=== PATIENT | female | born 1950 | race Caucasian/White ===

== ENCOUNTER 2016-12-15 10:07 | Emergency (ER) | payer MEDICARE, OTHER ==
[2016-12-15] MEDS ORDERED: MORPHINE SULFATE 4 MG INJ IV ONE (10:28)
[2016-12-15] MEDS ORDERED: Phenergan 25 MG INJ IV ONE (10:29)
[2016-12-15] MEDS ORDERED: Sodium Chloride 0.9% 1000 ML 1,000 ML IV SCH (10:30)
[2016-12-15] MEDS ORDERED: MORPHINE SULFATE 4 MG INJ ONE (10:34)
[2016-12-15] MEDS ORDERED: Phenergan 25 MG INJ ONE (10:34)
[2016-12-15] MEDS ORDERED: Sodium Chloride 0.9% 1000 ML 1,000 ML ONE (10:35)
--- NOTE | 2016-12-15 10:35 | ERPHSYRPT ---
- History of Present Illness Time Seen by Provider: 12/15/16 10:23 Historian: patient Exam Limitations: no limitations Patient Subjective Stated Complaint: pt co pain to abd since last night, pain is diffuse,nausea, no vomiitng, black tarry stool last night Triage Nursing Assessment: pt alert, resp easy.skin w/d pale.abd distended,and tender to touch Physician History: This is a 66-year-old white female with history of coronary artery disease, COPD , sarcoidosis, colitis, patient arrives with complaint of pain in the periumbilical region symptoms since last night she has abdominal distention she states that she has been having hard stools and has had black tarry stool since last night. She states she has had dry heaves. She has no fevers no chest pain no shortness of breath. Past medical history includes coronary artery disease, COPD, sarcoidosis, colitis. Past surgical history includes cardiac stent, right femur surgery, back fusion. Timing/Duration: yesterday (last night) Quality: aching, cramping Abdominal Pain Onset Location: periumbilical Pain Radiation: no radiation Severity of Pain-Max: moderate Severity of Pain-Current: moderate Modifying Factors: Improves With: nothing Associated Symptoms: nausea, No back, No chest pain, No diaphoresis, No diarrhea , No fever/chills, No fatigue, No headache, No heartburn, No loss of appetite, No neck pain, No rash, No shortness of breath, No syncope (Will), No vomiting Previous symptoms: no prior history Allergies/Adverse Reactions: amoxicillin trihydrate [From Augmentin] Adverse Reaction (Mild, Verified 10:21) nauseated potassium clavula *RETIRED-02/16/13 [From Augmentin] Adverse Reaction (Mild, Verified 12/15/16 10:21) nauseated hydrocodone Adverse Reaction (Verified 12/15/16 10:21) Home Medications: Albuterol Sulfate [Proair Hfa] 8.5 gm IH Q4-6HPRN PRN 05/26/16 [History] Amlodipine/Atorvastatin [Caduet 10 mg-10 mg Tablet] 1 each PO DAILY 05/26/16 [ History] Fenofibrate 54 mg PO DAILY 05/26/16 [History] Fluticasone/Salmeterol [Advair 250-50 Diskus] 1 puff IH BID 05/26/16 [History] Furosemide 40 mg PO DAILY 05/26/16 [History] Isosorbide Mononitrate 30 mg [Imdur 30 MG] 30 mg PO DAILY 05/26/16 [History ] Lisinopril/Hydrochlorothiazide [Lisinopril-Hctz 20-12.5 mg Tab] 1 each PO DAILY 05/26/16 [History] Metoprolol Succinate 50 mg [Toprol Xl 50 MG] 75 mg PO DAILY 05/26/16 [ History] [place]-3/Dha/Epa/Fish Oil [Fish Oil Dr 500 mg Softgel] 1,000 mg PO BID 05/26/16 [ History] Oxycodone HCl/Acetaminophen [Percocet 10-325 mg Tablet] 1 - 2 each PO Q6HPRN PRN 05/26/16 [History] Pravastatin Sodium 20 mg PO DAILY 05/26/16 [History] Nitroglycerin 0.4 mg Tablet [Nitrostat 0.4 MG Tablet] 0.4 mg SL Q5MIN PRN MR X 3 PRN 06/30/16 [History] Potassium Chloride 10 Meq Tab* [Klor Con 10 MEQ] 10 meq PO BID 06/30/16 [ History] Aspirin 1 tab PO DAILY 10/02/16 [History] Carbidopa/Levodopa [Sinemet 25-100 mg Tablet] 1 ea TID 12/15/16 [History] Nabumetone [Relafen] 750 mg BID 12/15/16 [History] Hx Tetanus, Diphtheria Vaccination/Date Given: Yes (UP TO DATE) Hx Influenza Vaccination/Date Given: Yes Hx Pneumococcal Vaccination/Date Given: Yes Immunizations Up to Date: Yes - Review of Systems Constitutional: No Fever, No Chills Eyes: No Symptoms Ears, Nose, & Throat: No Symptoms, No Ear Pain, No Ear Discharge, No Hearing Changes, No Tinnitus, No Nose Pain, No Nose Congestion, No Nose Discharge, No Sinus Drainage, No Epistaxis, No Mouth Pain, No Mouth Swelling, No Loose Teeth, No Throat Swelling Respiratory: No Cough, No Cyanosis, No Dyspnea, No Stridor, No Wheezing Cardiac: No Chest Pain, No Edema, No Syncope Abdominal/Gastrointestinal: Abdominal Pain, Nausea, Vomiting (dry heaves), Melena, No Diarrhea, No Constipation, No Hematemesis, No Hematochezia Genitourinary Symptoms: No Dysuria Musculoskeletal: No Back Pain, No Neck Pain Skin: No Rash Neurological: No Dizziness, No Focal Weakness, No Sensory Changes Psychological: No Symptoms Endocrine: No Symptoms All Other Systems: Reviewed and Negative - Past Medical History Pertinent Past Medical History: Yes Neurological History: No Pertinent History, TIA ENT History: No Pertinent History Cardiac History: Coronary Artery Disease Respiratory History: COPD, Pneumonia, Other Endocrine Medical History: Diabetes Type II Musculoskeletal History: No Pertinent History History: Other Psycho-Social History: No Pertinent History Female Reproductive Disorders: No Pertinent History Other Medical History: Sarcodosis. UTI,tremors,bleeding ulcers - Past Surgical History Past Surgical History: Yes Neuro Surgical History: No Pertinent History Cardiac: Cardiac Stent Respiratory: No Pertinent History Genitourinary: No Pertinent History Musculoskeletal: Orthopedic Surgery Female Surgical History: No Pertinent History Other Surgical History: Right femur, back fusion - Social History Smoking Status: Never smoker Exposure to second hand smoke: No Drug Use: none Patient Lives Alone: Yes - Female History Hx Last Menstrual Period: post Hx Now: No - Nursing Vital Signs Nursing Vital Signs: Initial Vital Signs Temperature 98.4 F Temperature Source Oral Pulse Rate 78 Respiratory Rate 16 Blood Pressure [] 104/54 Pain Intensity 5 - Physical Exam General Appearance: moderate distress, alert Eye Exam: PERRL/EOMI, eyes nml inspection Ears, Nose, Throat Exam: normal ENT inspection, pharynx normal, moist mucous membranes Neck Exam: normal inspection, non-tender, supple, full range of motion Respiratory Exam: normal breath sounds, lungs clear, No respiratory distress Cardiovascular Exam: regular rate/rhythm, normal heart sounds, normal peripheral pulses, murmur (1/6 david) Gastrointestinal/Abdomen Exam: tenderness (periumbilical tenderness), distention , other (Abdomen moderately distended, firm positive bowel sounds.), No mass, No guarding, No ecchymosis, No pulsatile mass, No rebound, No hernia, No hepatomegaly, No organomegaly, No splenomegaly, No bruit Back Exam: normal inspection, normal range of motion, No CVA tenderness, No vertebral tenderness Extremity Exam: normal inspection, normal range of motion, pelvis stable Neurologic Exam: alert, oriented x 3, cooperative, normal mood/affect, nml cerebellar function, sensation nml, No motor deficits Skin Exam: normal color, warm, dry SpO2 Interpretation: normal (100%) SpO2: 100 Oxygen Delivery: Room Air - CT Exams Abdomen/Pelvis CT Interpretation: Discussed w/radiologist (CT abdomen: Cirrhotic liver, large abdominal ascites, stable gallstone and chronic bony findings, new tiny left lung base effusion.) Ordered Tests: Active Orders 24 hr Category Date Time Status IV Insertion STAT Care 12/15/16 10:28 Active ABDOMEN AND PELVIS W/0 CONTRAS [CT] Stat Exams 12/15/16 11:26 Completed AMYLASE Stat Lab 12/15/16 10:20 Completed CBC W DIFF Stat Lab 12/15/16 10:20 Completed CMP Stat Lab 12/15/16 10:20 Completed LIPASE Stat Lab 12/15/16 10:20 Completed Occult Blood,Stool Other Stat Lab 12/15/16 10:30 Ordered UA Stat Lab 12/15/16 10:28 Ordered Medication Summary Generic Name Dose Route Start Last Admin Trade Name Freq PRN Reason Stop Dose Admin Sodium Chloride 1,000 mls @ 100 mls/hr 12/15/16 10:30 12/15/16 10:37 Sodium Chloride 0.9% 1000 Ml IV 01/14/17 10:29 100 mls/hr .Q10H EMIGDIO Administration Discontinued Medications Generic Name Dose Route Start Last Admin Trade Name Freq PRN Reason Stop Dose Admin Sodium Chloride Confirm 12/15/16 10:35 Sodium Chloride 0.9% 1000 Ml Administered 12/15/16 10:36 Dose 1,000 mls @ ud .ROUTE .STK-MED ONE Morphine Sulfate 4 mg 12/15/16 10:28 12/15/16 10:37 Morphine Sulfate 4 Mg Inj IV 12/15/16 10:29 4 mg STAT ONE Administration Morphine Sulfate Confirm 12/15/16 10:34 Morphine Sulfate 4 Mg Inj Administered 12/15/16 10:35 Dose 4 mg .ROUTE .STK-MED ONE Promethazine HCl 12.5 mg 12/15/16 10:29 12/15/16 10:40 Phenergan 25 Mg Inj IV 12/15/16 10:30 12.5 mg STAT ONE Administration Promethazine HCl Confirm 12/15/16 10:34 Phenergan 25 Mg Inj Administered 12/15/16 10:35 Dose 25 mg .ROUTE .STK-MED ONE Lab/Rad Data: Laboratory Result Diagrams 12/15/16 10:20 12/15/16 10:20 Laboratory Results 12/15/16 12/15/16 Range/Units 10:20 10:20 WBC 7.9 (4.0-10.5) K/mm3 RBC 2.96 L (4.1-5.4) M/mm3 Hgb 9.2 L (12.0-16.0) gm/dl Hct 27.6 L (35-47) % MCV 93.2 (78-100) fl MCH 31.0 (26-32) pg MCHC 33.3 (32-36) g/dl RDW 14.5 H (11.5-14.0) % Plt Count 238 (150-450) K/mm3 MPV 10.7 H (6-9.5) fl Gran % 58.4 (36.0-66.0) % Lymphocytes % 28.4 (24.0-44.0) % Monocytes % 8.9 (0.0-12.0) % Eosinophils % 3.8 (0.00-5.0) % Basophils % 0.5 (0.0-0.4) % Basophils # 0.04 (0-0.4) Sodium 139 (136-145) mEq/L Potassium 3.9 (3.5-5.1) mEq/L Chloride 102 (98-107) mEq/L Carbon Dioxide 24.6 (21-32) mEq/L Anion Gap 16.2 H (5-15) MEQ/L BUN 33 H (9-20) mg/dL Creatinine 2.27 H (0.55-1.30) mg/dl Estimated GFR 23 ML/MIN Glucose 161 H (70-110) MG/DL Calcium 9.1 (8.5-10.1) mg/dL Total Bilirubin 1.6 H (0.2-1.0) mg/dL AST 40 H (15-37) U/L ALT 7 L (12-78) U/L Alkaline Phosphatase 75 (46-116) U/L Serum Total Protein 8.7 H (6.4-8.2) gm/dL Albumin 2.3 L (3.4-5.0) g/dL Amylase 18 L (25-115) U/L Lipase 103 (73-393) U/L - Progress Progress: improved Progress Note: 12/15/16 12:32 This is a 66-year-old white female with history of coronary artery disease COPD sarcoidosis colitis She arrives with complaint of abdominal distention and pain in the area superior to the umbilicus symptoms since last night. Patient with moderate amount of pain abdomen is mildly firm positive bowel sounds and distended. CT of the abdomen which shows a large amount of ascites. Patient's CBC shows a white count of 7.9 hemoglobin 9.2 hematocrit 27.6 chemistry shows a sodium 139 potassium 3.9 chloride 102 bicarbonate 24 BUN 33 creatinine 2.7 glucose 161 Patient has not produced a urine at this time I have discussed case with Dr. Ventura who is covering for the patient's physician Dr. West. Dr. Ventura requests that the patient be taking care of him Laura Cho due to specialist availability. I've discussed the case with Dr. Muñoz at [facility] hospitalist he has accepted the patient for transfer. Diagnosis abdominal pain, ascites. Patient has been given morphine she does have mild release of relief of her pain but still has pain. She has been given careful IV normal saline 100 mL per hour. Will transfer to [facility] - Departure Time of Disposition: 12:34 Departure Disposition: Transfer ([facility], Dr. Muñoz) Clinical Impression: Abdominal pain Qualifiers: Abdominal location: upper abdomen, unspecified Qualified Code(s): R10.10 - Upper abdominal pain, unspecified Ascites Qualifiers: Ascites type: other type Qualified Code(s): R18.8 - Other ascites Condition: Fair Critical Care Time: No
[2016-12-15 10:37] LABS: BASOPHIL % 0.5 % (0.0-0.4); Eosinophil % 3.8 % (0.00-5.0); Granulocytes % 58.4 % (36.0-66.0); Lymphocytes % 28.4 % (24.0-44.0); Mean Cell Volume 93.2 fl (78-100); Mean Platelet Volume 10.7 fl (6-9.5); Monocytes % 8.9 % (0.0-12.0); Platelet Count 238 K/mm3 (150-450); Red Blood Count 2.96 M/mm3 (4.1-5.4); Red Cell Distribution Width 14.5 % (11.5-14.0); White Blood Count 7.9 K/mm3 (4.0-10.5)
[2016-12-15 10:53] LABS: ALBUMIN 2.3 g/dL (3.4-5.0); ANION GAP 16.2 MEQ/L (5-15); BILIRUBIN,TOTAL 1.6 mg/dL (0.2-1.0); Carbon Dioxide 24.6 mEq/L (21-32); Potassium 3.9 mEq/L (3.5-5.1); Total Protein 8.7 gm/dL (6.4-8.2)
[2016-12-15 11:55] VITALS: BP 104/54; PULSE 78
[2016-12-15 12:02] VITALS: O2SAT 100
--- NOTE | 2016-12-15 12:07 | XRAY ---
Indication: Abdominal pain. Multiple contiguous axial images obtained through the abdomen and pelvis without contrast as ordered. Comparison: October 03, 2016. Lung bases demonstrates minimal bibasilar dependent atelectasis and new tiny left effusion. Heart is not enlarged. Interval increasing large abdominal and pelvic ascites. No walled off fluid collection or free air. Again cirrhotic appearing liver and solitary gallstone. Noncontrasted stomach and bowel loops appear nonobstructed. Previous reported hysterectomy and appendectomy. Remaining liver, gallbladder, pancreas, spleen, adrenal glands, kidneys, ureters, and bladder appear unremarkable for noncontrast exam. Mild aortoiliac calcifications without AAA. Osseous structures intact again with multilevel spinal degenerative changes, remote T12 superior endplate fracture, L4-L5 fusion with laminectomy, and previous right femur ORIF surgery. Impression: 1. Again cirrhotic liver with now large abdominal/pelvic ascites. 2. Stable gallstone and chronic bony findings detailed above. 3. New tiny left lung base effusion. CT DI 27.40
== END 2016-12-15 13:33 | disposition short-term general hospital (02) ==
LOC: ED 10:07
DX: R10.10 Upper abdominal pain, unspecified (principal); R18.8 Other ascites; E11.9 Type 2 diabetes mellitus without complications; R11.2 Nausea with vomiting, unspecified; K92.1 Melena; Z86.73 Personal history of transient ischemic attack (TIA), and cerebral infarction without residual deficits
CPT/HCPCS: 36000; 36415; 74176; 80053; 82150; 83690; 85025; 96360; 96361; 96374; 96375; 99284; 99285; J2270; J2550

== ENCOUNTER 2017-04-03 22:56 | Emergency (ER) | payer MEDICARE, OTHER ==
--- NOTE | 2017-04-03 23:13 | ERPHSYRPT ---
- History of Present Illness Time Seen by Provider: 04/03/17 22:56 Source: patient Exam Limitations: no limitations Physician History: FOR THE PAST 5 DAYS PT HAS HAD CRAMPING LOWER ABDOMINAL PAIN. PT VOMITED X1 TODAY. LAST BM WAS 2 DAYS AGO AND NOT DIARRHEAL. PT ALSO C/O SHORTNESS OF AIR. PT DENIES FEVER AND CHEST PAIN; ADMITS TO LEGS SWELLING FOR "A WHILE". Allergies/Adverse Reactions: amoxicillin trihydrate [From Augmentin] Adverse Reaction (Mild, Verified 10:21) nauseated potassium clavula *RETIRED-02/16/13 [From Augmentin] Adverse Reaction (Mild, Verified 12/15/16 10:21) nauseated hydrocodone Adverse Reaction (Verified 12/15/16 10:21) Home Medications: Albuterol Sulfate [Proair Hfa] 8.5 gm IH Q4-6HPRN PRN 05/26/16 [History] Amlodipine/Atorvastatin [Caduet 10 mg-10 mg Tablet] 1 each PO DAILY 05/26/16 [ History] Fenofibrate 54 mg PO DAILY 05/26/16 [History] Fluticasone/Salmeterol [Advair 250-50 Diskus] 1 puff IH BID 05/26/16 [History] Furosemide 40 mg PO DAILY 05/26/16 [History] Isosorbide Mononitrate 30 mg [Imdur 30 MG] 30 mg PO DAILY 05/26/16 [History ] Lisinopril/Hydrochlorothiazide [Lisinopril-Hctz 20-12.5 mg Tab] 1 each PO DAILY 05/26/16 [History] Metoprolol Succinate 50 mg [Toprol Xl 50 MG] 75 mg PO DAILY 05/26/16 [ History] [place]-3/Dha/Epa/Fish Oil [Fish Oil Dr 500 mg Softgel] 1,000 mg PO BID 05/26/16 [ History] Oxycodone HCl/Acetaminophen [Percocet 10-325 mg Tablet] 1 - 2 each PO Q6HPRN PRN 05/26/16 [History] Pravastatin Sodium 20 mg PO DAILY 05/26/16 [History] Nitroglycerin 0.4 mg Tablet [Nitrostat 0.4 MG Tablet] 0.4 mg SL Q5MIN PRN MR X 3 PRN 06/30/16 [History] Potassium Chloride 10 Meq Tab* [Klor Con 10 MEQ] 10 meq PO BID 06/30/16 [ History] Aspirin 1 tab PO DAILY 10/02/16 [History] Carbidopa/Levodopa [Sinemet 25-100 mg Tablet] 1 ea TID 12/15/16 [History] Nabumetone [Relafen] 750 mg BID 12/15/16 [History] Hx Tetanus, Diphtheria Vaccination/Date Given: Yes (UP TO DATE) Hx Influenza Vaccination/Date Given: Yes Hx Pneumococcal Vaccination/Date Given: Yes - Review of Systems Constitutional: No Fever Respiratory: Dyspnea Abdominal/Gastrointestinal: Abdominal Pain, Vomiting Musculoskeletal: Other (SWELLING OF LEGS(ONGOING)) All Other Systems: Reviewed and Negative - Past Medical History Pertinent Past Medical History: Yes Neurological History: No Pertinent History, TIA ENT History: No Pertinent History Cardiac History: Coronary Artery Disease Respiratory History: COPD, Pneumonia, Other Endocrine Medical History: Diabetes Type II Musculoskeletal History: No Pertinent History History: Other Psycho-Social History: No Pertinent History Female Reproductive Disorders: No Pertinent History Other Medical History: Sarcodosis. UTI,tremors,bleeding ulcers - Past Surgical History Past Surgical History: Yes Neuro Surgical History: No Pertinent History Cardiac: Cardiac Stent Respiratory: No Pertinent History Genitourinary: No Pertinent History Musculoskeletal: Orthopedic Surgery Female Surgical History: No Pertinent History Other Surgical History: Right femur, back fusion - Social History Smoking Status: Never smoker Exposure to second hand smoke: No Drug Use: none Patient Lives Alone: Yes - Female History Hx Now: No - Nursing Vital Signs Nursing Vital Signs: Initial Vital Signs Temperature 98.2 F Temperature Source Oral Pulse Rate 67 Respiratory Rate 18 Blood Pressure [Right Arm] 101/41 Pain Intensity 8 - Physical Exam General Appearance: alert Eye Exam: PERRL/EOMI Ears, Nose, Throat Exam: dry mucous membranes Neck Exam: normal inspection Respiratory Exam: lungs clear Cardiovascular Exam: murmur (3/6 SYSTOLIC MURMUR) Gastrointestinal/Abdomen Exam: soft, normal bowel sounds Rectal Exam: normal rectal tone Back Exam: normal inspection Extremity Exam: swelling (+3 RIGHT AND +2 LEFT LEG PITTING EDEMA) Neurologic Exam: alert, cooperative Skin Exam: pale - Course Nursing assessment & vital signs reviewed: Yes EKG Interpreted by Me: RATE ([id number]), Sinus Rhythm, NORMAL AXIS, NORMAL INTERVALS - Radiology Exams Chest X-ray Interpretation: Interpreted by me (RIGHT PLEURAL EFFUSION) Ordered Tests: Active Orders 24 hr Category Date Time Status Catheter-[facility] STAT Care 04/03/17 23:33 Active EKG-ER Only STAT Care 04/03/17 23:11 Active IV Insertion STAT Care 04/03/17 23:11 Active ABDOMEN AND PELVIS W/0 CONTRAS [CT] Stat Exams 04/03/17 23:12 Taken CHEST 1 VIEW (PORTABLE) Stat Exams 04/03/17 23:12 Taken AMYLASE Stat Lab 04/03/17 23:15 Completed BLOOD CULTURE Stat Lab 04/03/17 23:25 Received CBC W DIFF Stat Lab 04/03/17 23:15 Completed CMP Stat Lab 04/03/17 23:15 Completed CULTURE,URINE Stat Lab 04/04/17 00:30 Received LIPASE Stat Lab 04/03/17 23:15 Completed Lactic Acid Stat Lab 04/04/17 00:14 Results Manual Differential NC Stat Lab 04/03/17 23:15 Completed Occult Blood,Stool Other Stat Lab 04/04/17 00:20 Completed PROTIME WITH INR Stat Lab 04/04/17 00:00 Completed PTT Stat Lab 04/04/17 00:00 Completed TROPONIN Stat Lab 04/03/17 23:15 Completed UA W/ MICROSCOPIC Stat Lab 04/04/17 00:30 Completed Medication Summary Generic Name Dose Route Start Last Admin Trade Name Freq PRN Reason Stop Dose Admin Sodium Chloride 1,000 mls @ 200 mls/hr 04/03/17 23:15 04/03/17 23:25 Sodium Chloride 0.9% 1000 Ml IV 05/03/17 23:14 200 mls/hr .Q5H EMIGDIO Administration Discontinued Medications Generic Name Dose Route Start Last Admin Trade Name Freq PRN Reason Stop Dose Admin Sodium Chloride 1,000 mls @ 999 mls/hr 04/04/17 00:14 04/04/17 00:26 Sodium Chloride 0.9% 1000 Ml IV 04/04/17 01:14 999 mls/hr .Q1H1M STA Administration Ceftriaxone Sodium/Dextrose 1 g in 50 mls @ 100 mls/hr 04/04/17 00:15 00:28 Rocephin 1 Gm-D5w 50 Ml Bag IV 04/04/17 00:44 100 mls/hr STAT STA Administration Ceftriaxone Sodium/Dextrose Confirm 04/04/17 00:27 Rocephin 1 Gm-D5w 50 Ml Bag Administered 04/04/17 00:28 Dose 1 g in 50 mls @ ud IV .STK-MED ONE Lab/Rad Data: Laboratory Result Diagrams 04/03/17 23:15 04/03/17 23:15 Laboratory Results 04/04/17 04/04/17 04/04/17 Range/Units 00:30 00:20 00:14 WBC (4.0-10.5) K/mm3 RBC (4.1-5.4) M/mm3 Hgb (12.0-16.0) gm/dl Hct (35-47) % MCV (78-100) fl MCH (26-32) pg MCHC (32-36) g/dl RDW (11.5-14.0) % Plt Count (150-450) K/mm3 MPV (6-9.5) fl INR (0.8-3.0) APTT (25.3-37.0) SECONDS Sodium (136-145) mEq/L Potassium (3.5-5.1) mEq/L Chloride (98-107) mEq/L Carbon Dioxide (21-32) mEq/L Anion Gap (5-15) MEQ/L BUN (9-20) mg/dL Creatinine (0.55-1.30) mg/dl Estimated GFR ML/MIN Glucose (70-110) MG/DL Lactic Acid 3.6 H (0.4-2.0) Calcium (8.5-10.1) mg/dL Total Bilirubin (0.2-1.0) mg/dL AST (15-37) U/L ALT (12-78) U/L Alkaline Phosphatase (46-116) U/L Troponin I (0.000-0.056) ng/ml Serum Total Protein (6.4-8.2) gm/dL Albumin (3.4-5.0) g/dL Amylase (25-115) U/L Lipase (73-393) U/L Ur Collection Type CATH Urine Color BROWN (YELLOW) Urine Appearance CLOUDY (CLEAR) Urine pH 6.0 (5-6) Ur Specific [place] 1.020 (1.005-1.025) Urine Protein >=300 (Negative) Urine Glucose (UA) NEGATIVE (NEGATIVE) mg/dL Urine Ketones SMALL-15 (NEGATIVE) Urine Nitrite NEGATIVE (NEGATIVE) Urine Bilirubin SMALL (NEGATIVE) Urine Urobilinogen 1 (0-1) mg/dL Urine WBC (Auto) SMALL (NEGATIVE) Urine RBC (Auto) LARGE (0-5) Scottie/ul Urine Microscopic RBC 50-100 (0-2) /HPF Urine Microscopic WBC 25-50 (0-5) /HPF Ur Epithelial Cells RARE (FEW) /HPF Urine Bacteria MODERATE (NEGATIVE) /HPF Urine Mucus MODERATE (NEGATIVE) /HPF Stool Occult Blood NEGATIVE (Negative) Specimen Received 04/04/17:0030 04/04/17 04/03/17 04/03/17 Range/Units 00:00 23:15 23:15 WBC 26.8 H* (4.0-10.5) K/mm3 RBC 2.07 L (4.1-5.4) M/mm3 Hgb 5.8 L* (12.0-16.0) gm/dl Hct 17.9 L (35-47) % MCV 86.5 (78-100) fl MCH 28.0 (26-32) pg MCHC 32.4 (32-36) g/dl RDW 15.4 H (11.5-14.0) % Plt Count 258 (150-450) K/mm3 MPV 11.1 H (6-9.5) fl INR 2.14 (0.8-3.0) APTT 37.0 (25.3-37.0) SECONDS Sodium 128 L (136-145) mEq/L Potassium 4.3 (3.5-5.1) mEq/L Chloride 94 L (98-107) mEq/L Carbon Dioxide 20.0 L (21-32) mEq/L Anion Gap 18.5 H (5-15) MEQ/L BUN 52 H (9-20) mg/dL Creatinine 3.12 H (0.55-1.30) mg/dl Estimated GFR 16 ML/MIN Glucose 111 H (70-110) MG/DL Lactic Acid (0.4-2.0) Calcium 9.3 (8.5-10.1) mg/dL Total Bilirubin 1.60 H (0.2-1.0) mg/dL AST 46 H (15-37) U/L ALT < 6 L (12-78) U/L Alkaline Phosphatase 96 (46-116) U/L Troponin I 0.516 H* (0.000-0.056) ng/ml Serum Total Protein 9.5 H (6.4-8.2) gm/dL Albumin 2.3 L (3.4-5.0) g/dL Amylase 18 L (25-115) U/L Lipase 77 (73-393) U/L Ur Collection Type Urine Color (YELLOW) Urine Appearance (CLEAR) Urine pH (5-6) Ur Specific [place] (1.005-1.025) Urine Protein (Negative) Urine Glucose (UA) (NEGATIVE) mg/dL Urine Ketones (NEGATIVE) Urine Nitrite (NEGATIVE) Urine Bilirubin (NEGATIVE) Urine Urobilinogen (0-1) mg/dL Urine WBC (Auto) (NEGATIVE) Urine RBC (Auto) (0-5) Scottie/ul Urine Microscopic RBC (0-2) /HPF Urine Microscopic WBC (0-5) /HPF Ur Epithelial Cells (FEW) /HPF Urine Bacteria (NEGATIVE) /HPF Urine Mucus (NEGATIVE) /HPF Stool Occult Blood (Negative) Specimen Received - Progress Discussed with Dr.: Other (SPOKE WITH JASON JULES N.P.(FOR DR DUMAS)([id number]) WHO ACCEPTED PT FOR TRANSFER TO [facility] A DIRECT ADMISSION.) - Departure Time of Disposition: 01:45 Departure Disposition: Transfer ([facility]) Clinical Impression: SEVERE ANEMIA, LEUKOCYTOSIS R/O SEPSIS, ELEVATED TROPONIN, RENAL FAILURE, DECUBITUS ULCERS, COPD, DM, UTI, CAD Condition: Stable Critical Care Time: Yes Critical Care Time(excluding separately billable procedures): 30-74 minutes Referrals: CHANO VALENCIA MD [Primary Care Provider] -
[2017-04-03] MEDS ORDERED: Sodium Chloride 0.9% 1000 ML 1,000 ML IV SCH (23:15)
[2017-04-03] MEDS ORDERED: Sodium Chloride 0.9% 1000 ML 1,000 ML ONE (23:18)
[2017-04-04 00:04] LABS: Mean Cell Volume 86.5 fl (78-100); Mean Platelet Volume 11.1 fl (6-9.5); Platelet Count 258 K/mm3 (150-450); Red Blood Count 2.07 M/mm3 (4.1-5.4); Red Cell Distribution Width 15.4 % (11.5-14.0)
[2017-04-04 00:10] LABS: White Blood Count 26.8 K/mm3 (4.0-10.5)
[2017-04-04] MEDS ORDERED: Sodium Chloride 0.9% 1000 ML 1,000 ML IV STA (00:14)
[2017-04-04] MEDS ORDERED: ROCEPHIN 1 Gm-D5w 50 ml Bag** 1 G/50 ML IVPB IV STA (00:15)
[2017-04-04 00:23] LABS: ALBUMIN 2.3 g/dL (3.4-5.0); ALKALINE PHOSPHATASE 96 U/L (46-116); ANION GAP 18.5 MEQ/L (5-15); BLOOD UREA NITROGEN 52 mg/dL (9-20); CHLORIDE 94 mEq/L (98-107); Glucose 111 MG/DL (70-110); LIPASE 77 U/L (73-393); Potassium 4.3 mEq/L (3.5-5.1); SGOT/AST 46 U/L (15-37); SODIUM 128 mEq/L (136-145); Total Protein 9.5 gm/dL (6.4-8.2)
[2017-04-04] MEDS ORDERED: ROCEPHIN 1 Gm-D5w 50 ml Bag** 1 G/50 ML IVPB IV ONE (00:27)
[2017-04-04 00:43] LABS: INR 2.14 (0.8-3.0); PROTIME 24.4 SECONDS (9.95-12.35)
[2017-04-04 00:43] LABS: SGPT/ALT < 6 U/L (12-78); TROPONIN 0.516 ng/ml (0.000-0.056)
[2017-04-04 00:44] LABS: Lactic Acid 3.6 (0.4-2.0)
[2017-04-04 00:56] LABS: Collection Type CATH
[2017-04-04 00:57] LABS: Bacteria MODERATE /HPF (NEGATIVE); COMPLETE URINE MICROSCOPIC? YES; Epithelial Cells RARE /HPF (FEW); Mucus MODERATE /HPF (NEGATIVE); WBC 25-50 /HPF (0-5)
[2017-04-04 01:42] VITALS: BP 87/47; PULSE 65
[2017-04-04] MEDS ORDERED: Sodium Chloride 0.9% 1000 ML 1,000 ML ONE (01:58)
[2017-04-04] MEDS ORDERED: CLINDAMYCIN-D5W 900 MG/50 ML*** 900 MG/50 ML BAG IV STA (02:14)
[2017-04-04] MEDS ORDERED: CLINDAMYCIN-D5W 900 MG/50 ML*** 900 MG/50 ML BAG IV ONE (02:14)
[2017-04-04 02:57] LABS: ANISOCYTOSIS 2+; BAND 2 % (0.0-2.0); Hypochromia 2+; Platelet Estimate NORMAL (NORMAL); Total Cells Counted 100
[2017-04-04 04:27] VITALS: O2SAT 86
--- NOTE | 2017-04-04 07:52 | XRAY ---
Indication: Short of breath. Comparison: July 03, 2016. Portable chest demonstrates interval developing borderline cardiomegaly, vascular congestion, and small bibasilar effusions concerning for cardiac decompensation. Superimposed pneumonia not completely excluded. Bony thorax intact.
--- NOTE | 2017-04-04 08:02 | XRAY ---
Indication: Abdominal pain. Cirrhosis. Multiple contiguous axial images obtained through the abdomen and pelvis without contrast as ordered. Comparison: December 15, 2016. Lung bases demonstrates interval mild/moderate bilateral effusions with compressive atelectasis, right greater than left. The heart is borderline enlarged. Again there is moderate abdominal and pelvic ascites slightly less than before. No free air. Stable cirrhotic liver, solitary gallstone, calcified splenic granulomas, and previous reported hysterectomy/appendectomy. Noncontrasted stomach and bowel loops appear nonobstructed. [place] Mack catheter empties the bladder. Remaining pancreas, adrenal glands, kidneys, and ureters appear unremarkable for noncontrast exam. There remains mild aortoiliac calcifications without AAA. There is now mild diffuse anasarca. Medial right thigh now demonstrates subcutaneous air, incompletely evaluated. Osseous structures intact again with multilevel spinal degenerative changes, remote T12 fracture, L4-L5 fusion with laminectomy, and previous right femur ORIF surgery. Impression: 1. New medial right thigh subcutaneous air either iatrogenic versus posttraumatic versus gas-forming infection. Correlate clinically. 2. There is now borderline cardiomegaly with bibasilar pleural effusions and anasarca. Rule out cardiac decompensation. Superimposed pneumonia not completely excluded. 3. Again cirrhotic liver with abdominal/pelvic ascites. 4. Stable gallstone and chronic bony findings detail above. Comment: Preliminary interpretation was made by C. No discrepancy. CTDI 23.18
== END 2017-04-04 02:10 | disposition short-term general hospital (02) ==
LOC: ED 22:56
DX: D64.9 Anemia, unspecified (principal); D72.829 Elevated white blood cell count, unspecified; R79.89 Other specified abnormal findings of blood chemistry; N19 Unspecified kidney failure; L89.90 Pressure ulcer of unspecified site, unspecified stage; J44.9 Chronic obstructive pulmonary disease, unspecified; E11.9 Type 2 diabetes mellitus without complications; N39.0 Urinary tract infection, site not specified; I25.10 Atherosclerotic heart disease of native coronary artery without angina pectoris; Z79.899 Other long term (current) drug therapy
CPT/HCPCS: 93041; 96365; 99285; 51702; 96360; 96361; 96367; 93005; 87040; 82150; 81000; 85610; 85730; 36415 ×2; 82272; 83690; 87186; 85025; 87077; 80053; 84484; 87086; 86850; 86900; 86901; 86922; 71010; 74176; 83605; P9016; 36000; 36430; J0696